=== PATIENT | female | born 1985 | race Caucasian/White ===

== ENCOUNTER → 2016-07-16 | Outpatient (CLI) | payer BC | LOC: MOB LAB 16:17 | PROVIDERS: ATTEND Family Medicine | DX: R10.2 Pelvic and perineal pain (principal); N89.8 Other specified noninflammatory disorders of vagina | CPT/HCPCS: 87480; 87510; 87660 ==

== ENCOUNTER → 2016-07-17 | Outpatient (CLI) | payer BC ==
--- NOTE | 2016-07-17 10:07 | DI ---
PELVIC ULTRASOUND, 07/17/2016 9:17 AM Clinical History: Pelvic pain. Previous Exam: None at this facility. Technique: Transabdominal scans are performed. The uterus measures 50 x 80 x 120 mm and otherwise has a normal appearance. The central uterine strip e measures approximately 13 mm. There is 5-6 cm cyst of the right ovary. It has some internal echoes within it, probably representing proteinaceous debris. The left ovary is normal. There are no fluid c ollections or masses. Readin. The uterus is enlarged but otherwise has a normal appearance. The central uterine stripe measures approximately 13 mm. 2. There is a 5-6 cm cyst of the right ovary. The left ovary is normal.
== END ==
LOC: US 09:13
PROVIDERS: ATTEND Family Medicine
DX: R10.2 Pelvic and perineal pain (principal); N83.201 Unspecified ovarian cyst, right side
CPT/HCPCS: 76856

== ENCOUNTER → 2016-07-23 | Outpatient (CLI) | payer BC ==
--- NOTE | 2016-07-23 11:44 | DI ---
RIGHT WRIST, 07/23/2016 9:41 AM: Clinical History: Right wrist pain. Previous Exam: None at this facility. 3 views are submitted. There is no acute soft tissue, osseous, or joint abnormality. Reading: Normal right wrist exam.
--- NOTE | 2016-07-23 11:44 | DI ---
LEFT WRIST, 07/23/2016 9:41 AM: Clinical History: Left wrist pain. Previous Exam: None at this facility. 3 views are submitted. There is no acute soft tissue, osseous, or joint abnormality. Reading: Normal left wrist exam.
== END ==
LOC: ORTHO 09:45
PROVIDERS: ATTEND Orthopaedic Surgery
DX: M25.531 Pain in right wrist (principal); M25.532 Pain in left wrist; G56.03 Carpal tunnel syndrome, bilateral upper limbs
CPT/HCPCS: 73110

== ENCOUNTER 2016-08-02 12:41 | Day surgery (SDC) | payer BC ==
[~2016-08-02 12:41] MED LIST: LIDOCAINE W/ SODIUM BICARB 0.5 ML SYR ONE; Lactated Ringers 1,000 ML PRIMARY IV ONE; ceFAZolin Inj 2gm (Premix) 50 ML IV ONE
[2016-08-02] MEDS ORDERED: fentaNYL Inj 100 MCG/2 ML VIAL ONE (12:59)
[2016-08-02] MEDS ORDERED: MEPIVACAINE HCL/PF 20 MG/1 ML IV ONE (13:00)
[2016-08-02] MEDS ORDERED: MIDAZOLAM 5 MG/1 ML ONE (13:00)
[2016-08-02] MEDS ORDERED: LIDOCAINE 2%/ EPI 1:200,000 - 20 ML VIAL ONE (13:00)
--- NOTE | 2016-08-02 14:38 | CRNA.PROCE ---
Nerve Block Documentation - - Safety Measures: Time Out Taken, Site Verified - - Type of Nerve Block Used: Right Infraclavicular Block Position for Nerve Block: Supine Moniters Used During Block: EKG, SPO2, NIBP Oxygen Sumpplented: Yes Sedation Used - Enter Amount in Comment Field: Midazolam (mg): Yes (3mg iv) Skin Prep Used: ChloroPrep Technique: Nerve Stimulator Nerve Block Needle Used: 80 mm ProBlk II Stimulation Hz: 1.0 Stimulation Staring mA: 1.2 Stimulation Ending mA: 0.5 Local Anesthetic - Enter Amt in Comment Field: 2 % Xylocaine with Epinephrine 1: 200,000 (mL): Yes (20ml), 2 % Mepivacaine (mL): Yes (20ml)
[2016-08-02] MEDS ORDERED: Lactated Ringers 1,000 ML PRIMARY IV ONE (14:50)
[2016-08-02] MEDS ORDERED: BISACODYL 10 MG SUPPOSITORY RECTAL PRN (15:03)
[2016-08-02] MEDS ORDERED: MORPHINE SULFATE 2 MG/1 ML IVP PRN (15:03)
[2016-08-02] MEDS ORDERED: MAG HYDROX/AL HYDROX/SIMETH 30 ML SUSP PO PRN (15:03)
[2016-08-02] MEDS ORDERED: BISACODYL 5 MG TABLET PO PRN (15:03)
[2016-08-02] MEDS ORDERED: Prochlorperazine Tab 10 MG TAB PO PRN (15:03)
[2016-08-02] MEDS ORDERED: diphenhydrAMINE 25 MG CAPSULE PO PRN (15:03)
[2016-08-02] MEDS ORDERED: NORMAL SALINE 10 ML SYRINGE FLUSH IVP PRN (15:03)
[2016-08-02] MEDS ORDERED: ACETAMINOPHEN 325 MG TABLET PO PRN (15:03)
[2016-08-02] MEDS ORDERED: CALCIUM CARBONATE 500 MG (TUMS) CHEWABLE TABLET PO PRN (15:03)
[2016-08-02] MEDS ORDERED: ONDANSETRON 4 MG/2 ML VIAL IVP PRN (15:03)
[2016-08-02] MEDS ORDERED: IBUPROFEN 400 MG TABLET PO PRN (15:03)
[2016-08-02] MEDS ORDERED: Ondansetron ODT Tab 8 MG TAB PO PRN (15:03)
[2016-08-02] MEDS ORDERED: HYDROcodone-APAP 5 MG -325 MG TABLET PO PRN (15:03)
[2016-08-02] MEDS ORDERED: Lactated Ringers 1,000 ML PRIMARY IV SCH (15:15)
[2016-08-02] MEDS ORDERED: ONDANSETRON 4 MG/2 ML VIAL ONE (16:24)
[2016-08-02] MEDS ORDERED: ONDANSETRON 4 MG/2 ML VIAL IVP ONE (16:25)
[2016-08-02] MEDS ORDERED: oxyCODONE-ACETAMINOPHEN 5-325 TAB PO ONE (16:57)
[2016-08-02 17:27] VITALS: TEMP 99.1
[2016-08-02 17:28] VITALS: RESP 16
== END 2016-08-02 17:05 | disposition home or self-care (01) ==
LOC: SDSC 12:41
PROVIDERS: ATTEND Orthopaedic Surgery
DX: G56.01 Carpal tunnel syndrome, right upper limb (principal)
CPT/HCPCS: 64721; 84703; J0690; J2704; J3010; J0670; J2250; J2405; J7120

== ENCOUNTER → 2016-08-22 | Outpatient (CLI) | payer BC ==
--- NOTE | 2016-08-22 17:04 | DI ---
US PELVIC COMPLETE (NON OB),08/22/2016 12:57 PM: Clinical History: Pelvic pain Previous Exam: July 17, 2016 Findings: Multiple transabdominal grayscale and color Doppler sonographic images are obtained through the pelvi s demonstrating a normal-appearing uterus measuring 11.6 x 4.6 x 7.3 cm. Right ovary measures 3.2 x 3.4 x 1.6 cm and the left ovary measures 2.8 x 2.4 x 2.8 cm. The endometrial stripe measured 6 mm. There is normal Doppler flow involving both ovaries. The ovarian cyst seen on the prior exam is not visible on this exam. Impression: Interval resolution of a large right ovarian cyst.
== END ==
LOC: US 12:45
PROVIDERS: ATTEND Family Medicine
DX: R10.2 Pelvic and perineal pain (principal)
CPT/HCPCS: 76856

== ENCOUNTER → 2016-10-15 | Outpatient (CLI) | payer BC | LOC: LAB 09:31 | PROVIDERS: ATTEND Family Medicine | DX: N91.2 Amenorrhea, unspecified (principal) | CPT/HCPCS: 36415; 84702 ==

== ENCOUNTER → 2016-11-15 | Outpatient (CLI) | payer BC ==
--- NOTE | 2016-11-15 14:54 | DI ---
US OB LESS THAN 14 WEEKS,11/15/2016 12:37 PM: Clinical History: Established gestational age. Previous Exam: Aug 20 2016 Findings: Multiple views of the pelvis are obtained, and demonstrate a single live intrauterine gestation with a crown-rump length measuring 21 mm corresponding with an estimated gestational age of 8 weeks 6 days . The left ovary contains a simple cyst measuring 3.7 cm in diameter. The right ovary in its entirety measures 2.9 x 1.4 x 2.1 cm with normal Doppler flow. The left ovary in its entirety measures 5.7 x 3.7 x 4.9 cm also with normal Doppler flow. Detected Doppler heart tones measure 169 beats per minute. Impression: Single live intrauterine gestation with estimated gestational age of 8 weeks 6 days.
== END ==
LOC: US 12:34
PROVIDERS: ATTEND Family Medicine
DX: Z36 Encounter for antenatal screening of mother (principal); Z3A.09 9 weeks gestation of pregnancy
CPT/HCPCS: 76801

== ENCOUNTER → 2016-11-19 | Outpatient (CLI) | payer BC ==
[2016-11-19 10:06] LABS: BASOPHILS # (AUTO) 0.04 10*3/UL; BASOPHILS % (AUTO) 0.9 % (0-1); EOSINOPHILS # (AUTO) 0.02 10*3/UL; EOSINOPHILS % (AUTO) 0.4 % (0-8); HEMATOCRIT 38.4 % (37.0-47.0); HEMOGLOBIN 13.3 g/dL (12.0-16.0); LYMPHOCYTES # (AUTO) 0.76 10*3/uL; MEAN CORPUSCULAR HEMOGLOBIN 31.9 PG (27-31); MEAN CORPUSCULAR HGB CONC 34.6 g/dL (33-37); MEAN CORPUSCULAR VOLUME 92.1 FL (81-99); MEAN PLATELET VOLUME 11.2 FL (7.4-12.2); MONOCYTES # (AUTO) 0.46 10*3/UL (0.3-0.8); NEUTROPHILS % (AUTO) 71.9 % (50-80); RED BLOOD COUNT 4.17 10^6/uL (4.20-5.40)
[2016-11-19 10:07] LABS: PLATELET MORPHOLOGY COMMENT NORMAL MORPHOLOGY (NORM); RBC MORPHOLOGY COMMENT NORMAL MORPHOLOGY (NORM); WBC MORPHOLOGY COMMENT NORMAL MORPHOLOGY (NORM)
[2016-11-19 11:03] LABS: HIV ANTIBODY NEGATIVE (N); HIV-1 P24 ANTIGEN NEGATIVE (N)
== END ==
LOC: MOB LAB 09:10
PROVIDERS: ATTEND Family Medicine
DX: Z36 Encounter for antenatal screening of mother (principal); Z3A.09 9 weeks gestation of pregnancy
CPT/HCPCS: 36415; 80081; 86900; 86901

== ENCOUNTER 2017-06-03 13:18 | Inpatient (IN) ==
[2017-06-03] MEDS ORDERED: Lactated Ringers 1,000 ML PRIMARY IV ONE ×3 (14:28→15:38)
[2017-06-03] MEDS ORDERED: Lactated Ringers-OB Dept 1,000 ML ONE (14:31)
[2017-06-03] MEDS ORDERED: NORMAL SALINE 10 ML SYRINGE FLUSH IVP PRN ×2 (15:03→15:31)
[2017-06-03] MEDS ORDERED: ATROPINE SULFATE 0.4 MG/1 ML VIAL IVP PRN (15:03)
[2017-06-03] MEDS ORDERED: Ondansetron ODT Tab 8 MG TAB PO PRN (15:03)
[2017-06-03] MEDS ORDERED: ONDANSETRON 4 MG/2 ML VIAL IVP PRN ×2 (15:03→17:18)
[2017-06-03] MEDS ORDERED: fentaNYL Inj 100 MCG/2 ML VIAL IVP PRN (15:03)
[2017-06-03] MEDS ORDERED: HYDROmorphone 2 MG/1 ML IVP PRN (15:03)
--- NOTE | 2017-06-03 15:05 | CRNA.PROGR ---
Anesthesia Time - - Start date: 06/03/17 End date: 06/03/17 - Procedure/Recovery Time Anesthesia : Time In: 15:57 Anesthesia : Time Out: 16:59 Anesthesia : Total Time: 62 - Total Anesthesia Time Total Anesthesia Time (minutes): 62 - Other Physical Status: P2 () Anesthesia Type: Spinal Block Obstetrics: C/S anesthesia only
[2017-06-03] MEDS ORDERED: Oxytocin 20 Units + LR 20 UNIT/1,000 ML BAG IV ONE ×2 (15:10→17:53)
[2017-06-03] MEDS ORDERED: ePHEDrine Inj 50 MG/ML AMP ONE (15:15)
[2017-06-03] MEDS ORDERED: PHENYLEPHRINE 10,000 MCG/1 ML VIAL ONE (15:15)
[2017-06-03] MEDS ORDERED: Lactated Ringers 1,000 ML PRIMARY IV SCH ×2 (15:15→15:31)
[2017-06-03] MEDS ORDERED: Sodium Chloride 0.9% vial 10 ML ONE (15:15)
[2017-06-03] MEDS ORDERED: CITRIC ACID/SODIUM CITRATE 30 ML CUP PO ONE ×2 (15:29→15:31)
[2017-06-03] MEDS ORDERED: FAMOTIDINE 20 MG/2 ML VIAL IVP ONE (15:30)
[2017-06-03] MEDS ORDERED: Sodium Chloride 0.9% 100 ML IV ONE (15:30)
[2017-06-03] MEDS ORDERED: Famotidine Inj 20 MG in Normal Saline Flush 10 ML IVP ONE (15:31)
[2017-06-03] MEDS ORDERED: CefOXitin Inj 2 GM in Sodium Chloride 0.9% 100 ML IV ONE (15:31)
[2017-06-03] MEDS ORDERED: Oxytocin 20 Units + LR 20 UNIT/1,000 ML BAG IV SCH ×2 (15:31→17:18)
[2017-06-03] MEDS ORDERED: LIDOCAINE W/ SODIUM BICARB 0.5 ML SYR SUBD PRN (15:31)
[2017-06-03] MEDS ORDERED: LIDOCAINE HCL 2 % 10 ML JELLY URO-JECT TOPICAL PRN (15:31)
[2017-06-03 15:51] LABS: Hematocrit [HCT] 34.2 % (37.0-47.0); Hemoglobin [HGB] 11.3 g/dL (12.0-16.0); MEAN CORPUSCULAR HEMOGLOBIN 32.3 PG (27-31); MEAN CORPUSCULAR VOLUME 97.7 FL (81-99); MEAN PLATELET VOLUME 10.7 FL (7.4-12.2); RED BLOOD COUNT 3.5 10^6/uL (4.20-5.40)
--- NOTE | 2017-06-03 15:59 | OB.PROGRES ---
Date and Time of Service: 06/03/17 @ 1530 Interval History: Pt is a 31 yo at 37 3/7 weeks by early u/s who presents to labor and delivery with the complaint of contractions. She came to L&D yesterday complaining of contractions, but she had just some mild uterine irritability and was discharged home. Today, she reports continued contractions. She has a h/ o 3 previous sections. Baby is moving normally. Denies vag bleeding, gushes of fluid or abnormal vaginal discharge. Objective - Cervical Exam Cervical Exam: no check [place]: every 2-4 minutes, palpating mild to moderate Heart Rate: reactive, category 1 strip. No decels noted. Heart Rate Interpretation Category: Category I - Labs CBC and BMP: 06/04/17 04:00 Assessment and Plan - Patient Problems (1) Uterine contractions during Status: Acute Code(s): O62.2 - Other uterine inertia (2) Previous section Status: Acute Code(s): Z98.891 - History of uterine scar from previous surgery - Assessment / Plan Additional Assessment/Plan Details: -pt continues to contract despite IV fluids. -GBS negative. -given her h/o 3 prior uterine scars, will do her repeat section now to reduce risk of uterine rupture. Consents have been previously signed. They were again reviewed verbally today. All questions were answered. She is in agreement with proceeding with repeat section today. OR crew has been notified. We will proceed to the OR as soon as the OR crew is ready.
[2017-06-03] MEDS ORDERED: ONDANSETRON 4 MG/2 ML VIAL ONE (16:25)
[2017-06-03] MEDS ORDERED: Lactated Ringers 2,000 ML PRIMARY IV ONE (16:42)
--- NOTE | 2017-06-03 17:06 | CRNA.PROGR ---
Anesthesia Recovery Phase I - Post Anesthesia Evaluation Patient's Condition on Arrival in Phase I: Stable Patient's Condition on Arrival in Phase II: Stable Pain Level: 0
[2017-06-03] MEDS ORDERED: DIPH,PERTUSS,TET(ADACEL) VAC/PF 0.5 ML (Tdap) IM ONE (17:18)
[2017-06-03] MEDS ORDERED: CALCIUM CARBONATE 500 MG (TUMS) CHEWABLE TABLET PO PRN (17:18)
[2017-06-03] MEDS ORDERED: Famotidine Inj 20 MG in Normal Saline Flush 10 ML IVP PRN (17:18)
[2017-06-03] MEDS ORDERED: HYDROmorphone 2 MG/1 ML IV PRN (17:18)
[2017-06-03] MEDS ORDERED: diphenhydrAMINE 50 MG/1 ML VIAL IV PRN (17:18)
[2017-06-03] MEDS ORDERED: LANOLIN HPA 40 GM TUBE TOPICAL PRN (17:18)
[2017-06-03] MEDS ORDERED: diphenhydrAMINE 25 MG CAPSULE PO PRN (17:18)
[2017-06-03] MEDS ORDERED: Nalbuphine Inj 20 MG/ML Ampule IVP PRN (17:18)
[2017-06-03] MEDS ORDERED: Naloxone Inj 0.01 MG, Sodium Chloride 0.9% vial 1 ML IVP PRN ×2 (17:18)
[2017-06-03] MEDS: KETOROLAC 15 MG/1 ML VIAL IVP SCH (18:47)
[2017-06-03] MEDS: NORMAL SALINE 10 ML SYRINGE FLUSH IVP PRN (18:47)
[2017-06-03] MEDS: D5-LR 1,000 ML PRIMARY IV SCH (21:08)
[2017-06-04] MEDS: KETOROLAC 15 MG/1 ML VIAL IVP SCH ×3 (00:04→14:09)
[2017-06-04] MEDS ORDERED: SIMETHICONE 80 MG TABLET ONE (02:16)
[2017-06-04] MEDS: SIMETHICONE 80 MG TABLET PO PRN ×5 (02:17→21:08)
[2017-06-04] MEDS: oxyCODONE-ACETAMINOPHEN 5-325 TAB PO PRN ×3 (03:57→18:36)
[2017-06-04 05:16] LABS: Hematocrit [HCT] 32.4 % (37.0-47.0); Hemoglobin [HGB] 10.6 g/dL (12.0-16.0); MEAN CORPUSCULAR HEMOGLOBIN 32.2 PG (27-31); MEAN CORPUSCULAR HGB CONC 32.7 g/dL (33-37); MEAN CORPUSCULAR VOLUME 98.5 FL (81-99); MEAN PLATELET VOLUME 11.2 FL (7.4-12.2); RED BLOOD COUNT 3.29 10^6/uL (4.20-5.40)
[2017-06-04] MEDS: D5-LR 1,000 ML PRIMARY IV SCH ×2 (06:03→14:05)
[2017-06-04] MEDS: NORMAL SALINE 10 ML SYRINGE FLUSH IVP PRN ×3 (06:12→21:09)
[2017-06-04] MEDS: Senna/Docusate Tab 1 TAB TAB PO SCH ×2 (09:16→21:08)
[2017-06-04] MEDS: Prenatal Multivitamin Tab 1 TAB TAB PO SCH (09:16)
[2017-06-04 14:24] VITALS: O2SAT 94
--- NOTE | 2017-06-04 16:57 | CRNA.PROGR ---
Anesthesia Note - Progress Notes Anesthesia Progress Note: Sitting in bed. Main complaint-"wicked gas Pain". Denies headache. Denies backache. States incisional pain well controlled. Laboratory Results 06/03/17 06/04/17 Range/Units 15:41 04:00 WBC 11.48 H (4.8-10.8) 10^3/uL RBC 3.29 L (4.20-5.40) 10^6/uL Hgb 10.6 L (12.0-16.0) g/dL Hct 32.4 L (37.0-47.0) % MCV 98.5 (81-99) FL MCH 32.2 H (27-31) PG MCHC 32.7 L (33-37) g/dL RDW Std Deviation 47.0 (39-50) fL RDW Coeff of [place] 13.6 (11.5-14.5) % Plt Count 178 (140-350) 10*3/uL MPV 11.2 (7.4-12.2) FL Blood Type O POSITIVE Antibody Screen Negative Intake and Output (24hr x 4 totals) 06/02/17 06/03/17 06/04/17 06/05/17 05:59 05:59 05:59 05:59 Intake Total 9733 / 9733 1000 / 1000 Output Total 3325 / 3325 100 / 100 Balance 6408 / 6408 900 / 900 Vital Signs - Last Taken Temperature 98.4 F 06/04/17 14:23 Pulse Rate 82 06/04/17 14:23 Respiratory Rate 18 06/04/17 14:23 Blood Pressure 110/54 06/04/17 14:23 Pulse Ox 94 06/04/17 14:23 No apparent anesthetic difficulties.
[2017-06-04] MEDS ORDERED: KETOROLAC 15 MG/1 ML VIAL IVP ONE (20:00)
[2017-06-04] MEDS ORDERED: MAGNESIUM 400 MG/5 ML - 30 ML (MILK OF MAGNESIA) PO PRN (20:39)
[2017-06-04 21:26] VITALS: BP 135/72
--- NOTE | 2017-06-04 22:45 | OB.PROGRES ---
Subjective Post Op Day: 1 Pain Management: PO Moore Catheter: No Flatus: Yes Diet: Regular Feeding Method: Exculsively Ambulating: Yes Concerns / Additional Information: Pt complaining of right shoulder pain, feels like she is having gas pains in her abdomen as well. Has been up ambulating, which maybe helps a little bit. She is also taking gas-x, with maybe a little bit of relief. Baby is nursing well. No bowel movement since delivery. Voiding normally. Eating regular diet. Objective - General General Appearance: POSITIVE: No Acute Distress, Cooperative - Cardiovacular Cardiovascular Exam: POSITIVE: RRR, No Murmur Edema: +1 Pedal Edema Extremities: Negative Sharron's - Bilaterally - Respiratory Respiratory Exam: POSITIVE: Clear to Auscultation - Bilaterally, Breathing Non Labored - Abdomen Bowel Sounds: Hypoactive Abdominal Wound Assessment: Silverlone Dressing Assesstment / Plan (1) S/P repeat low transverse Current Visit: No Status: Acute Assessment / Plan: -routine cares. -rubella immune. -rh positive. -breast feeding well. -d/c home in 1-2 days.
[2017-06-05] MEDS: IBUPROFEN 800 MG TABLET PO PRN ×2 (02:38→10:23)
[2017-06-05] MEDS ORDERED: IBUPROFEN 800 MG TABLET PO PRN (05:00)
[2017-06-05 09:12] VITALS: RESP 20; TEMP 98.1
[2017-06-05] MEDS: Prenatal Multivitamin Tab 1 TAB TAB PO SCH (09:15)
[2017-06-05] MEDS: Senna/Docusate Tab 1 TAB TAB PO SCH (09:15)
--- NOTE | 2017-06-15 21:03 | OB.PROGRES ---
Subjective Post Op Day: 2 Pain Management: PO Moore Catheter: No Flatus: Yes Diet: Regular Feeding Method: Exculsively Ambulating: Yes Concerns / Additional Information: No concerns. Up and around. Is having some gas pains/feeling like she needs to have a bowel movement--the pains woke her up from sleep last noc. Simethicone hasn't been very helpful to this point. Continues to ambulate in order to help get things moving. Objective - General General Appearance: POSITIVE: No Acute Distress, Cooperative - Cardiovacular Cardiovascular Exam: POSITIVE: RRR, No Murmur Edema: +1 Pedal Edema Extremities: Negative Sharron's - Bilaterally - Respiratory Respiratory Exam: POSITIVE: Clear to Auscultation - Bilaterally, Breathing Non Labored - Abdomen Bowel Sounds: Hypoactive Abdominal Wound Assessment: Silverlone Dressing Assesstment / Plan (1) Uterine contractions during Status: Acute (2) Previous section Status: Acute Assessment / Plan: -routine cares. -rh positive -rubella immune. -breast feeding going well. -continue to ambulate to help promote bowel function; also could try some miralax. -pt requesting discharge home today.
--- NOTE | 2017-06-17 17:36 | OB.OP.NOTE ---
Operative Report Surgeon: Jose Huerta MD Nurse Practical: Eulogio Espitia MD Anesthesia Type: Regional Anesthesia Provider: Altagracia Blevins CRNA Surgery Date: 06/03/17 Preoperative Diagnosis: Previous section. Uterine contractions Postoperative Diagnosis: same, delivered Procedure: Repeat low transverse section Complications: none Estimated Blood Loss (mL): 550 Urine Output (mL): 300 Fluids: 3000 cc of LR; 500 cc of LR with 20 mU of pitocin Indications: Patient is currently having fairly regular uterine contractions. We do not offer vaginal after section trials at our facility and the patient did not desire this. She is requesting a repeat section. Findings: clear amniotic fluid, female in transverse presentation Description of Procedure: The patient was taken to the operating room where spinal anesthesia was found to be adequate. She was then prepared and draped in the normal sterile fashion in the dorsal supine position with a leftward tilt. A Pfannenstiel skin incision was then made with the scalpel and carried through to the underlying layer of fascia with the Bovie. The fascia was incised in the midline and the incision extended laterally with the Bovie. The superior aspect of the fascial incision was then grasped with Tova clamps, elevated, and the underlying rectus muscles dissected off bluntly. Attention was then turned to the inferior aspect of this incision which, in a similar fashion, was grasped with Tova clamps and the rectus muscles dissected off both bluntly and with the Bovie. The rectus muscles were then in the midline, and the peritoneum identified, tented up, and entered in a blunt fashion. The peritoneal incision was then extended superiorly and inferiorly with good visualization of the bladder. The Link retractor was then inserted and the vesicouterine peritoneum was identified. The lower uterine segment was quite thin and was incised in a transverse fashion with the scalpel. The uterine incision was then extended laterally in a blunt fashion. The 's head was delivered atraumatically. The nose and mouth were suctioned with the bulb suction and the cord was clamped and cut. The was handed off to the awaiting nurse. Cord gases and cord blood were sent for analysis. The placenta was then removed manually; the uterus exteriorized, and cleared of all clots and debris. The uterine incision was repaired with 0 Vicryl in a running, locked fashion. A second layer of the same suture was used to obtain excellent hemostasis. The peritoneal cavity was then copiously irrigated with warm saline. The uterus was returned to the abdomen. The paracolic gutters were copiously irrigated with warm saline and a second look at the uterine incision continued to reveal excellent hemostasis. The peritoneum was closed with 3-0 Vicryl. The fascia was reapproximated with 0 PDS in a running fashion. The subcutaneous space was irrigated with copiously with warm saline and the closed first with 3-0 Vicryl rapide and then more superficially with Insorb absorbable sutures. The skin was reapproximated with Steri-Strips and a Silverlon dressing applied. Fundal massage was completed with no clots in vaginal vault. The patient tolerated the procedure well. Sponge, lap, and needle counts were correct x2. Mefoxin was given preoperatively less than one hour prior to skin incision time. The patient was taken to the recovery room in stable condition. Patient Problems - Patient Problem List (1) Uterine contractions during Status: Acute Code(s): O62.2 - Other uterine inertia Category: Medical (2) Previous section Status: Acute Code(s): Z98.891 - History of uterine scar from previous surgery Category: Medical
== END 2017-06-05 12:49 | disposition home or self-care (01) | DRG 766 ==
LOC: OBOP 13:18 → OBOR 15:21 → OBIP 17:02
PROVIDERS: ADMIT Family Medicine; ATTEND Family Medicine